=== PATIENT | male | born 1990 | race Two or more races ===

== ENCOUNTER 2018-10-06 05:02 | Emergency (ER) | payer OTHER ==
[~2018-10-06] VITALS: Ht 172.7 cm; Wt 83.9 kg
[2018-10-06] MEDS ORDERED: KETOROLAC TROMETH 60MG/2ML VIAL IM ONE (07:30)
[2018-10-06] MEDS ORDERED: diphenhdrAMINE HCL 25 MG CAP PO ONE (07:30)
[2018-10-06] MEDS ORDERED: PROMETHAZINE HCL 25 MG/ML 1ML IM ONE (07:30)
[2018-10-06 08:03] VITALS: BP 132/76
== END 2018-10-06 08:24 | disposition home or self-care (01) ==
LOC: ER 05:02
DX: R51 Headache (principal)
CPT/HCPCS: 70450; 96372; 99284; J1885; J2550